=== PATIENT | female | born 1995 | race Caucasian/White ===

== ENCOUNTER 2018-07-15 21:55 | Emergency (ER) | payer BC ==
[~2018-07-15] VITALS: Ht 160 cm; Wt 63.5 kg
[2018-07-15 22:27] VITALS: TEMP 98.7
[2018-07-16] MEDS ORDERED: DIGESTIVE PROB1 EACH PO (01:46)
[2018-07-16] MEDS ORDERED: MULTI VITAMINS1 TAB PO (01:46)
[2018-07-16] MEDS ORDERED: D-HIST (01:46)
[2018-07-16] MEDS ORDERED: ASHLYNA1 TAB (01:46)
[2018-07-16] MEDS ORDERED: VITAMIN D31000 I1 PO (01:47)
[2018-07-16] MEDS ORDERED: CEFTIN 250250 MG/TAB PO (01:47)
[2018-07-16] MEDS ORDERED: PROBIOTIC-SUNMARK (01:47)
[2018-07-16] MEDS ORDERED: MAGNESIUM CITR100 MG PO (01:47)
[2018-07-16] MEDS ORDERED: TUSS PO (02:43)
[2018-07-16 02:55] VITALS: BP 116/57; PULSE 68
== END 2018-07-16 03:18 | disposition home or self-care (01) ==
LOC: COL.ER 21:55
DX: J20.9 Acute bronchitis, unspecified (principal)